=== PATIENT | female | born 1985 | race Hispanic/Latino ===

== ENCOUNTER 2017-10-09 10:43 | Emergency (ER) | payer MEDICAID, OTHER ==
[2017-10-09] MEDS ORDERED: IBUPROFEN 600 MG TABLET ONE (11:43)
== END 2017-10-09 12:11 | disposition home or self-care (01) ==
LOC: EDH 10:43
DX: S13.4XXA Sprain of ligaments of cervical spine, initial encounter (principal); M54.5 Low back pain; V49.49XA Driver injured in collision with other motor vehicles in traffic accident, initial encounter; Y93.89 Activity, other specified; Y92.89 Other specified places as the place of occurrence of the external cause; Y99.8 Other external cause status
CPT/HCPCS: 71045; 72040; 72100; 81025

== ENCOUNTER 2017-10-26 09:39 | Emergency (ER) | payer MEDICAID, OTHER ==
[2017-10-26 10:14] LABS: APPEARANCE,URINE Clear (CLEAR); BILIRUBIN,URINE Negative (NEGATIVE); COLOR,URINE Yellow (YELLOW); GLUCOSE, URINE (UA) Negative (NEGATIVE); KETONES,URINE Negative (NEGATIVE); LEUKOCYTE ESTERASE ,URINE Negative (NEGATIVE); NITRATE,URINE Negative (NEGATIVE); OCCULT BLOOD,URINE Negative (NEGATIVE); PH,URINE 5.5 (5.0-8.0); PROTEIN,URINE Negative (NEGATIVE)
[2017-10-26 10:24] LABS: HCG,QUAL RESULT NEGATIVE (NEGATIVE)
[2017-10-26] MEDS ORDERED: KETOROLAC TROMETHAMINE 30MG/ML ONE (10:42)
== END 2017-10-26 11:52 | disposition home or self-care (01) ==
LOC: EDH 09:39
DX: N83.292 Other ovarian cyst, left side (principal); N83.291 Other ovarian cyst, right side; Z98.890 Other specified postprocedural states
CPT/HCPCS: 76856; 81003; 81025; 96372; 99285; J1885

== ENCOUNTER 2017-10-27 12:31 | Emergency (ER) | payer MEDICAID, OTHER ==
[2017-10-27] MEDS ORDERED: ACETAMINOPHEN-CODEINE 300/30MG TAB ONE (13:23)
[2017-10-27] MEDS ORDERED: NAPROXEN 500 MG TABLET ONE (13:23)
[2017-10-27] MEDS ORDERED: MORPHINE SULFATE 8 MG/ML VIAL ONE (13:26)
[2017-10-27] MEDS ORDERED: ONDANSETRON HCL 4 MG/2 ML VIAL ONE (13:28)
[2017-10-27 13:31] LABS: EOSINOPHILS % (AUTO) 0.3 % (0.0-8.0); HEMATOCRIT 35.1 % (36-48); LYMPHOCYTES % (AUTO) 18.8 % (21.0-51.0); MEAN CORPUSCULAR HEMOGLOBIN 27.1 pg (27.0-33.0); MEAN CORPUSCULAR HGB CONC 33.7 g/dL (32.0-36.0); MEAN CORPUSCULAR VOLUME 80.4 fL (79-99); MONOCYTES % (AUTO) 9.5 % (3.0-13.0); NEUTROPHILS % (AUTO) 71.4 % (40.0-77.0); PLATELET COUNT (AUTO) 288 K/uL (130-400); RED BLOOD CELL COUNT(AUTO) 4.37 MIL/uL (4.00-5.50); RED CELL DISTRIBUTION WIDTH 14.4 % (11.0-15.5); WHITE BLOOD COUNT (AUTO) 7.8 K/uL (4.8-10.8)
[2017-10-27 13:40] LABS: CREATININE 0.6 mg/dL (0.5-1.5); POTASSIUM 4.3 mmol/L (3.5-5.1)
== END 2017-10-27 16:10 | disposition home or self-care (01) ==
LOC: EDH 12:31
DX: N83.292 Other ovarian cyst, left side (principal); N83.291 Other ovarian cyst, right side
CPT/HCPCS: 36415; 74176; 80048; 81025; 85025; 96374; 96375; 99285; J2270; J2405

== ENCOUNTER 2017-10-29 10:58 | Observation (INO) | payer MEDICAID ==
[2017-10-29] MEDS ORDERED: ONDANSETRON HCL 4 MG/2 ML VIAL ONE (11:27)
[2017-10-29] MEDS ORDERED: SODIUM CHLORIDE 0.9% 1000ML 1,000 ML IV ONE (11:27)
[2017-10-29 11:30] LABS: BASOPHILS % (AUTO) 0.5 % (0.0-5.0); EOSINOPHILS % (AUTO) 0.9 % (0.0-8.0); HEMATOCRIT 38.7 % (36-48); LYMPHOCYTES % (AUTO) 20.4 % (21.0-51.0); MEAN CORPUSCULAR HEMOGLOBIN 26.7 pg (27.0-33.0); MEAN CORPUSCULAR HGB CONC 33.2 g/dL (32.0-36.0); MEAN CORPUSCULAR VOLUME 80.4 fL (79-99); MONOCYTES % (AUTO) 7.2 % (3.0-13.0); PLATELET COUNT (AUTO) 333 K/uL (130-400); RED BLOOD CELL COUNT(AUTO) 4.81 MIL/uL (4.00-5.50); RED CELL DISTRIBUTION WIDTH 14.3 % (11.0-15.5); WHITE BLOOD COUNT (AUTO) 8.4 K/uL (4.8-10.8)
[2017-10-29 11:47] LABS: APPEARANCE,URINE Clear (CLEAR); BILIRUBIN,URINE Negative (NEGATIVE); COLOR,URINE Yellow (YELLOW); GLUCOSE, URINE (UA) Negative (NEGATIVE); KETONES,URINE Negative (NEGATIVE); LEUKOCYTE ESTERASE ,URINE Moderate (NEGATIVE); NITRATE,URINE Negative (NEGATIVE); OCCULT BLOOD,URINE Large (NEGATIVE); PH,URINE >=9.0 (5.0-8.0); PROTEIN,URINE Negative (NEGATIVE); UROBILINOGEN,URINE 0.2 mg/dL (0.2-1.0)
[2017-10-29 11:47] LABS: CREATININE 0.8 mg/dL (0.5-1.5); POTASSIUM 3.5 mmol/L (3.5-5.1)
[2017-10-29 11:52] LABS: ALBUMIN 4.2 g/dL (3.5-5.0); BILIRUBIN,TOTAL 0.3 mg/dL (0.2-1.0); TOTAL PROTEIN, SERUM 8.3 g/dL (6.0-8.3)
[2017-10-29 12:03] LABS: HCG,QUAL RESULT NEGATIVE (NEGATIVE)
[2017-10-29] MEDS ORDERED: KETOROLAC TROMETHAMINE 30MG/ML ONE (12:12)
[2017-10-29 12:37] LABS: BACTERIA,URINE Rare /HPF (None Seen); SQUAMOUS EPITHELIAL CELL,UR Rare /LPF (0-2); WBC,URINE 0-1 /HPF (0-1)
[2017-10-29] MEDS ORDERED: SODIUM CHLORIDE 0.9% 10 ML VIAL IVP PRN (17:30)
[2017-10-29] MEDS ORDERED: PROMETHAZINE HCL 25 MG/ML 1ML AMPULE IM PRN (17:30)
[2017-10-29] MEDS ORDERED: MEPERIDINE-PF 75 MG/ML SYG IM PRN (17:30)
[2017-10-29] MEDS ORDERED: DEXTROSE 5 %-0.45 % NACL 1,000 ML IV PRN (17:30)
[2017-10-30] MEDS ORDERED: CALDOLOR 800MG+NS 250ML 250 ML IV SCH (01:30)
[2017-10-30] MEDS ORDERED: IBUPROFEN 800 MG TAB PO SCH (17:30)
== END 2017-10-29 18:50 | disposition home or self-care (01) ==
LOC: EDH 10:58 → EDHIP 10:59 → UNDOADMOB 15:00 → EDHIP 15:00
PROVIDERS: ADMIT Obstetrics & Gynecology; ATTEND Obstetrics & Gynecology
DX: N83.292 Other ovarian cyst, left side (principal); N83.291 Other ovarian cyst, right side
CPT/HCPCS: 36415; 76856; 80053; 81001; 81025; 85025; 87040 ×2; 87486; 87797; 99285; G0378 ×8; J1885; J2405; J7030

== ENCOUNTER 2018-07-02 13:53 | Emergency (ER) | payer MEDICAID ==
[2018-07-02] MEDS ORDERED: TETRACAINE HCL 0.5% 4 ML OPHTH SOLN ONE (14:23)
[2018-07-02] MEDS ORDERED: NA BORATE/BORIC AC/H2O/NACL 120 ML OPHTH IRRIG SOLN ONE (14:23)
[2018-07-02] MEDS ORDERED: FLUORESCEIN SODIUM 0.6 MG STRIP ONE (14:23)
[2018-07-02] MEDS ORDERED: DEXAMETHASONE SOD PHOSPHATE 10MG/ML 1ML VIAL ONE (14:41)
== END 2018-07-02 15:09 | disposition home or self-care (01) ==
LOC: EDH 13:53
DX: B02.9 Zoster without complications (principal)
CPT/HCPCS: 96372; 99284; J1100

== ENCOUNTER 2018-09-25 17:07 | Emergency (ER) | payer MEDICAID ==
[2018-09-25 18:35] LABS: APPEARANCE,URINE Clear (CLEAR); BILIRUBIN,URINE Negative (NEGATIVE); COLOR,URINE Yellow (YELLOW); GLUCOSE, URINE (UA) Negative (NEGATIVE); KETONES,URINE Negative (NEGATIVE); LEUKOCYTE ESTERASE ,URINE Trace (NEGATIVE); NITRATE,URINE Negative (NEGATIVE); OCCULT BLOOD,URINE Negative (NEGATIVE); PROTEIN,URINE Negative (NEGATIVE)
[2018-09-25 18:37] LABS: HCG,QUAL RESULT POSITIVE (NEGATIVE)
[2018-09-25 18:47] LABS: BACTERIA,URINE Moderate /HPF (None Seen); RBC,URINE None Seen /HPF (0-1); WBC,URINE 0-1 /HPF (0-1)
== END 2018-09-25 19:06 | disposition home or self-care (01) ==
LOC: EDH 17:07
DX: O26.891 Other specified pregnancy related conditions, first trimester (principal); R10.2 Pelvic and perineal pain; R11.0 Nausea; Z98.890 Other specified postprocedural states; Z3A.01 Less than 8 weeks gestation of pregnancy
CPT/HCPCS: 81001; 81025

== ENCOUNTER 2018-11-13 22:12 | Emergency (ER) | payer MEDICAID ==
[2018-11-13 22:56] LABS: APPEARANCE,URINE Clear (CLEAR); BILIRUBIN,URINE Negative (NEGATIVE); COLOR,URINE Yellow (YELLOW); GLUCOSE, URINE (UA) Negative (NEGATIVE); KETONES,URINE Trace mg/dL (NEGATIVE); LEUKOCYTE ESTERASE ,URINE Small (NEGATIVE); NITRATE,URINE Negative (NEGATIVE); OCCULT BLOOD,URINE Negative (NEGATIVE); PH,URINE 5.5 (5.0-8.0); PROTEIN,URINE Negative (NEGATIVE)
[2018-11-13 23:22] LABS: BACTERIA,URINE Moderate /HPF (None Seen); MUCUS,URINE Moderate LPF (None Seen); RBC,URINE None Seen /HPF (0-1); SQUAMOUS EPITHELIAL CELL,UR Many /HPF (0-2)
== END 2018-11-13 23:40 | disposition home or self-care (01) ==
LOC: EDH 22:12
DX: O26.891 Other specified pregnancy related conditions, first trimester (principal); R10.30 Lower abdominal pain, unspecified; Z3A.12 12 weeks gestation of pregnancy
CPT/HCPCS: 76801; 81001

== ENCOUNTER 2019-01-30 22:22 | Observation (INO) | payer MEDICAID ==
[~2019-01-30] VITALS: Ht 152.4 cm; Wt 58.5 kg
[2019-01-30] MEDS ORDERED: MAG HYDROX/AL HYDROX/SIMETH ES 30 ML SUSP UDCUP ONE (23:21)
[2019-01-30] MEDS ORDERED: LACTATED RINGERS 1000ML 1,000 ML IV ONE (23:22)
[2019-01-30] MEDS ORDERED: FAMOTIDINE/PF 20 MG/2 ML VIAL IV ONE (23:22)
[2019-01-30 23:45] LABS: BASOPHILS % (AUTO) 0.4 % (0.0-5.0); EOSINOPHILS % (AUTO) 0.5 % (0.0-8.0); HEMATOCRIT 31.6 % (36-48); LYMPHOCYTES % (AUTO) 13.2 % (21.0-51.0); MEAN CORPUSCULAR HEMOGLOBIN 28.2 pg (27.0-33.0); MEAN CORPUSCULAR HGB CONC 33.5 g/dL (32.0-36.0); MEAN CORPUSCULAR VOLUME 84.2 fL (79-99); MONOCYTES % (AUTO) 5.1 % (3.0-13.0); NEUTROPHILS % (AUTO) 80.8 % (40.0-77.0); PLATELET COUNT (AUTO) 269 K/uL (130-400); RED BLOOD CELL COUNT(AUTO) 3.76 MIL/uL (4.00-5.50); RED CELL DISTRIBUTION WIDTH 14.5 % (11.0-15.5); WHITE BLOOD COUNT (AUTO) 9.7 K/uL (4.8-10.8)
[2019-01-31 00:13] LABS: CREATININE 0.5 mg/dL (0.5-1.5); POTASSIUM 3.3 mmol/L (3.5-5.1)
[2019-01-31 00:19] LABS: ALBUMIN 2.8 g/dL (3.5-5.0); BILIRUBIN,TOTAL 0.2 mg/dL (0.2-1.0); TOTAL PROTEIN, SERUM 6.8 g/dL (6.0-8.3)
[2019-01-31] MEDS ORDERED: POTASSIUM CHLORIDE 10% ELIXIR 20 MEQ/15 ML UDCUP ONE (00:35)
[2019-01-31 05:19] VITALS: BP 100/68
[2019-01-31] MEDS ORDERED: PREN-94 PO (05:57)
[2019-01-31] MEDS ORDERED: PROMETHAZINE HCL 25 MG/ML 1ML AMPULE IM PRN (06:30)
[2019-01-31] MEDS ORDERED: MEPERIDINE-PF 50 MG/ML SYG IVP PRN (06:30)
[2019-01-31] MEDS: DEXTROSE 5%-LACTATED RINGERS 1,000 ML IV SCH ×2 (06:48→14:30)
[2019-01-31 07:31] VITALS: BP 95/58
[2019-01-31 11:34] VITALS: BP 93/56
--- NOTE | 2019-01-31 12:47 | NUR ---
DCP CM met with pt discussed dc plans. Pt is independent lives at home with children, family members lives close by. Denies any equipments/services. Pt feels safe to go back home, sister able to assist with transporatation and needs as necessary. DC plan to home once stable. CM to cont to follow up. Addendum: 01/31/19 at 1248 by PORSHA DAWN LVN CM Amended: Links added.
--- NOTE | 2019-01-31 14:45 | NUR ---
DISCHARGE PT WAS ABLE TO EAT HER SANDWICH WITH NO DIFFICULTY NOR PAIN SO IS READY FOR DISCHARGE; PT STABLE, NO PAIN, NO COMPLAINTS; PT LEFT UNIT, VIA WHEELCHAIR, STILL , ACCOMPANIED BY MAGDA LAZAR CARRYING ALL PERSONAL BELONGINGS, FOLLOW-UP APPT, AND INSTRUCTIONS; PT LEFT FACILITY IN PERSONAL VEHICLE
== END 2019-01-31 14:45 | disposition home or self-care (01) ==
LOC: EDH 22:22 → EDHIP 22:23 → UNDOADMOB 01-31 03:51 → EDHIP 01-31 03:51 → WSH 01-31 05:18
PROVIDERS: ADMIT Obstetrics & Gynecology; ATTEND Specialist
DX: O99.612 Diseases of the digestive system complicating pregnancy, second trimester (principal); K80.80 Other cholelithiasis without obstruction; Z3A.23 23 weeks gestation of pregnancy
CPT/HCPCS: 36415; 76705; 80053; 82550; 83690; 84484; 85025; 93005; 99284; G0378 ×16; J3490; J7120

== ENCOUNTER 2019-02-26 00:21 | Observation (INO) | payer MEDICAID ==
[~2019-02-26] VITALS: Ht 152.4 cm; Wt 58.5 kg
[~2019-02-26 00:21] MED LIST: PREN-94 PO
[2019-02-26] MEDS ORDERED: LACTATED RINGERS 1000ML 1,000 ML IV SCH ×2 (00:45→01:45)
[2019-02-26 00:52] LABS: APPEARANCE,URINE Clear (CLEAR); BILIRUBIN,URINE Negative (NEGATIVE); COLOR,URINE Yellow (YELLOW); GLUCOSE, URINE (UA) Negative (NEGATIVE); KETONES,URINE Negative (NEGATIVE); LEUKOCYTE ESTERASE ,URINE Trace (NEGATIVE); NITRATE,URINE Negative (NEGATIVE); OCCULT BLOOD,URINE Negative (NEGATIVE); PH,URINE 7.5 (5.0-8.0); PROTEIN,URINE Negative (NEGATIVE)
[2019-02-26 00:59] LABS: BACTERIA,URINE Few /HPF (None Seen); MUCUS,URINE Few LPF (None Seen); RBC,URINE None Seen /HPF (0-1); SQUAMOUS EPITHELIAL CELL,UR Few /HPF (0-2); WBC,URINE 0-1 /HPF (0-1)
[2019-02-26] MEDS ORDERED: TERBUTALINE SULFATE VIAL 1MG/ML SQ SCH ×2 (01:45)
[2019-02-26 01:47] VITALS: BP 107/69
[2019-02-26] MEDS ORDERED: TERBUTALINE SULFATE VIAL 1MG/ML SQ ONE (01:55)
[2019-02-26 02:10] LABS: AMPHET/METH SCREEN,URINE NEGATIVE (NEGATIVE); BARBITURATE SCREEN, URINE NEGATIVE (NEGATIVE); BENZODIAZEPINES SCREEN,URINE NEGATIVE (NEGATIVE); CANNABINOID SCREEN,URINE NEGATIVE (NEGATIVE); COCAINE SCREEN,URINE NEGATIVE (NEGATIVE); OPIATE SCREEN,URINE NEGATIVE (NEGATIVE); PHENCYCLIDINE SCREEN,URINE NEGATIVE (NEGATIVE)
== END 2019-02-26 04:30 | disposition home or self-care (01) ==
LOC: EDH 00:21 → LDH 00:36
PROVIDERS: ADMIT Specialist; ATTEND Specialist
DX: O26.892 Other specified pregnancy related conditions, second trimester (principal); R10.11 Right upper quadrant pain; R10.30 Lower abdominal pain, unspecified; Z3A.27 27 weeks gestation of pregnancy; Z79.899 Other long term (current) drug therapy
CPT/HCPCS: 80305; 81001; 99284; G0378 ×4; J3105; 96360; 96361

== ENCOUNTER 2019-04-14 04:03 | Observation (INO) | payer MEDICAID ==
[~2019-04-14] VITALS: Ht 152.4 cm; Wt 60.3 kg
[2019-04-14 04:32] LABS: APPEARANCE,URINE Clear (CLEAR); BILIRUBIN,URINE Negative (NEGATIVE); COLOR,URINE Yellow (YELLOW); GLUCOSE, URINE (UA) Negative (NEGATIVE); KETONES,URINE Negative (NEGATIVE); LEUKOCYTE ESTERASE ,URINE Negative (NEGATIVE); NITRATE,URINE Negative (NEGATIVE); OCCULT BLOOD,URINE Negative (NEGATIVE); PH,URINE 6.5 (5.0-8.0); PROTEIN,URINE Negative (NEGATIVE)
[2019-04-14] MEDS ORDERED: MAGNESIUM SULFATE 1,000 ML IV PRN (04:52)
[2019-04-14] MEDS ORDERED: MAGNESIUM 4GM PREMIX 100ML 100 ML IV SCH (05:00)
[2019-04-14] MEDS ORDERED: PHARMACY COMMUNICATION MISC SCH (05:00)
[2019-04-14] MEDS ORDERED: CALCIUM GLUCONATE 1 GM/10 ML VIAL IV PRN (05:00)
[2019-04-14] MEDS ORDERED: PROMETHAZINE HCL 25 MG/ML 1ML AMPULE IM PRN (05:00)
[2019-04-14] MEDS ORDERED: MAGNESIUM 4GM PREMIX 100ML 100 ML IV ONE (05:04)
[2019-04-14] MEDS ORDERED: MAGNESIUM SULFATE 1,000 ML IV ONE (05:30)
[2019-04-14] MEDS: AMPICILLIN 2GM+NS 100ML 100 ML IV SCH ×4 (05:54→23:35)
[2019-04-14] MEDS: CELESTONE SOLUSPAN 6 MG/ML 5ML VIAL IM SCH (06:01)
[2019-04-14] MEDS: LACTATED RINGERS 1000ML 1,000 ML IV SCH ×2 (06:30→23:33)
[2019-04-14 06:52] LABS: HEMATOCRIT 32.4 % (36-48); MEAN CORPUSCULAR HEMOGLOBIN 26.9 pg (27.0-33.0); MEAN CORPUSCULAR HGB CONC 33.4 g/dL (32.0-36.0); MEAN CORPUSCULAR VOLUME 80.8 fL (79-99); PLATELET COUNT (AUTO) 287 K/uL (130-400); RED BLOOD CELL COUNT(AUTO) 4.01 MIL/uL (4.00-5.50); RED CELL DISTRIBUTION WIDTH 14.1 % (11.0-15.5); WHITE BLOOD COUNT (AUTO) 7.2 K/uL (4.8-10.8)
[2019-04-14 10:22] LABS: AMPHET/METH SCREEN,URINE NEGATIVE (NEGATIVE); BARBITURATE SCREEN, URINE NEGATIVE (NEGATIVE); BENZODIAZEPINES SCREEN,URINE NEGATIVE (NEGATIVE); CANNABINOID SCREEN,URINE NEGATIVE (NEGATIVE); COCAINE SCREEN,URINE NEGATIVE (NEGATIVE); OPIATE SCREEN,URINE NEGATIVE (NEGATIVE); PHENCYCLIDINE SCREEN,URINE NEGATIVE (NEGATIVE)
[2019-04-15 03:40] VITALS: BP 99/54
[2019-04-15] MEDS: AMPICILLIN 2GM+NS 100ML 100 ML IV SCH (05:40)
[2019-04-15] MEDS: CELESTONE SOLUSPAN 6 MG/ML 5ML VIAL IM SCH (05:41)
[2019-04-15 06:10] LABS: HEPATITIS Bs ANTIGEN SCREEN P Negative (Negative)
== END 2019-04-15 10:15 | disposition home or self-care (01) ==
LOC: EDH 04:03 → LDH 04:04
PROVIDERS: ADMIT Specialist; ATTEND Specialist
DX: O60.03 Preterm labor without delivery, third trimester (principal); Z3A.34 34 weeks gestation of pregnancy; Z79.899 Other long term (current) drug therapy
CPT/HCPCS: 36415; 80305; 81003; 83735; 85027; 86592; 86850; 86900; 86901; 87340; 96365; 96366 ×3; 96368; 96372 ×2; 99284; G0378 ×30; J0290 ×5; J0702; J3475 ×3; J7120

== ENCOUNTER 2019-10-10 07:19 | Day surgery (SDC) | payer MEDICAID ==
[2019-10-07 10:19] VITALS: BP 110/59
[2019-10-07 10:31] LABS: BASOPHILS % (AUTO) 0.6 % (0.0-5.0); EOSINOPHILS % (AUTO) 1.8 % (0.0-8.0); HEMATOCRIT 38.7 % (36-48); LYMPHOCYTES % (AUTO) 28.3 % (21.0-51.0); MEAN CORPUSCULAR VOLUME 83.9 fL (79-99); MONOCYTES % (AUTO) 6.5 % (3.0-13.0); NEUTROPHILS % (AUTO) 61.4 % (40.0-77.0); PLATELET COUNT (AUTO) 335 K/uL (130-400); RED BLOOD CELL COUNT(AUTO) 4.61 MIL/uL (4.00-5.50); RED CELL DISTRIBUTION WIDTH 14.2 % (11.0-15.5); WHITE BLOOD COUNT (AUTO) 6.6 K/uL (4.8-10.8)
[2019-10-07 10:47] LABS: ALBUMIN 3.7 g/dL (3.5-5.0); BILIRUBIN,TOTAL 0.4 mg/dL (0.2-1.0); CREATININE 0.6 mg/dL (0.5-1.5); POTASSIUM 4.6 mmol/L (3.5-5.1)
[2019-10-10] VITALS (16 sets, daily range): BP systolic 104–113; BP diastolic 47–69
[~2019-10-10] VITALS: Ht 152.4 cm; Wt 56.2 kg
[~2019-10-10 07:19] MED LIST changes: +PHARMACY COMMUNICATION MISC SCH; -PREN-94 PO
[2019-10-10] MEDS ORDERED: SODIUM CHLORIDE 0.9% 1000ML 1,000 ML IV ONE (07:52)
[2019-10-10] MEDS: CEFAZOLIN SODIUM 1 GM VIAL ONE ×2 (08:20→08:50)
[2019-10-10] MEDS ORDERED: BUPIVACAINE/PF 0.5% 30ML VIAL ONE (08:31)
[2019-10-10] MEDS ORDERED: MIDAZOLAM HCL 1 MG/ML 2ML VIAL ONE (08:34)
[2019-10-10] MEDS ORDERED: NEOSTIGMINE 5MG/5ML SYR IV ONE (08:42)
[2019-10-10] MEDS ORDERED: GLYCOPYRROLATE 1 MG/5 ML SYRINGE ONE (08:42)
[2019-10-10] MEDS ORDERED: SUCCINYLCHOLINE 200MG/10ML SYR ONE (08:42)
[2019-10-10] MEDS ORDERED: LIDOCAINE PF 2% 5ML ABBOJECT ONE ×2 (08:42)
[2019-10-10] MEDS ORDERED: DEXAMETHASONE SOD PHOSPHATE 10MG/ML 1ML VIAL ONE (08:42)
[2019-10-10] MEDS ORDERED: ONDANSETRON HCL 4 MG/2 ML VIAL ONE ×2 (08:42→10:59)
[2019-10-10] MEDS ORDERED: FENTANYL CITRATE PF 50 MCG/1 ML 2ML VIAL ONE (08:42)
[2019-10-10] MEDS ORDERED: PROPOFOL 10 MG/ML 20ML VIAL IV ONE (08:42)
[2019-10-10] MEDS ORDERED: ROCURONIUM 10MG/1ML SYR 10 MG/ML ML ONE (08:42)
[2019-10-10] MEDS ORDERED: MEPERIDINE-PF 25 MG/ML SYG ONE ×2 (09:18→10:12)
[2019-10-10] MEDS ORDERED: METOPROLOL TARTRATE 1 MG/ML 5ML VIAL IV ONE (09:41)
[2019-10-10] MEDS ORDERED: KETOROLAC TROMETHAMINE 15MG/ML ONE (10:34)
== END 2019-10-10 12:05 | disposition home or self-care (01) ==
LOC: DAH 07:19
PROVIDERS: ATTEND Student in an Organized Health Care Education/Training Program
DX: K80.10 Calculus of gallbladder with chronic cholecystitis without obstruction (principal); K21.9 Gastro-esophageal reflux disease without esophagitis; Z98.890 Other specified postprocedural states; Z82.49 Family history of ischemic heart disease and other diseases of the circulatory system
CPT/HCPCS: 36415; 47562; 80053; 84703; 85025; 85730; 88305; A4649 ×4; A4930 ×2; A6206; C1769 ×2; G0168; J0330; J0690; J1100; J1885; J2001 ×2; J2175 ×2; J2250; J2405 ×2; J2704; J2710; J3010; J3490 ×3; J7030 ×2

== ENCOUNTER 2019-10-13 11:34 | Emergency (ER) | payer MEDICAID ==
[2019-10-13] MEDS ORDERED: DiphenhydrAMINE HCL 50 MG/ML VIAL ONE (11:44)
[2019-10-13] MEDS ORDERED: METHYLPREDNISOLONE SOD SUCC 125MG/2ML VIAL ONE (11:45)
[2019-10-13] MEDS ORDERED: FAMOTIDINE/PF 20 MG/2 ML VIAL IV ONE (11:45)
[2019-10-13 12:18] LABS: BASOPHILS % (AUTO) 0.1 % (0.0-5.0); EOSINOPHILS % (AUTO) 3.7 % (0.0-8.0); LYMPHOCYTES % (AUTO) 31.9 % (21.0-51.0); MEAN CORPUSCULAR HEMOGLOBIN 25.9 pg (27.0-33.0); MEAN CORPUSCULAR VOLUME 83.5 fL (79-99); MONOCYTES % (AUTO) 4.7 % (3.0-13.0); NEUTROPHILS % (AUTO) 58.9 % (40.0-77.0); PLATELET COUNT (AUTO) 400 K/uL (130-400); RED BLOOD CELL COUNT(AUTO) 4.67 MIL/uL (4.00-5.50); RED CELL DISTRIBUTION WIDTH 13.9 % (11.0-15.5); WHITE BLOOD COUNT (AUTO) 7.2 K/uL (4.8-10.8)
[2019-10-13 12:32] LABS: CREATININE 0.6 mg/dL (0.5-1.5); POTASSIUM 3.3 mmol/L (3.5-5.1)
[2019-10-13 12:36] LABS: ALBUMIN 3.3 g/dL (3.5-5.0); BILIRUBIN,TOTAL 0.3 mg/dL (0.2-1.0); TOTAL PROTEIN, SERUM 7.8 g/dL (6.0-8.3)
== END 2019-10-13 13:58 | disposition home or self-care (01) ==
LOC: EDH 11:34
DX: T78.40XA Allergy, unspecified, initial encounter (principal); Z98.890 Other specified postprocedural states; X58.XXXA Exposure to other specified factors, initial encounter
CPT/HCPCS: 36415; 80053; 85025; 96374; 96375; 99284; J1200; J2930; J3490

== ENCOUNTER 2021-03-02 14:58 | Observation (INO) | payer MEDICAID ==
[~2021-03-02] VITALS: Ht 152.4 cm; Wt 57.2 kg
[2021-03-02 15:33] VITALS: BP 108/58
[2021-03-02] MEDS ORDERED: 0.9%NACL 1000ML 1,000 ML IV SCH (16:45)
[2021-03-02 17:36] LABS: HEMATOCRIT 39.3 % (36-48); MEAN CORPUSCULAR HEMOGLOBIN 25.8 pg (27.0-33.0); MEAN CORPUSCULAR HGB CONC 31.3 g/dL (32.0-36.0); MEAN CORPUSCULAR VOLUME 82.4 fL (79-99); RED BLOOD CELL COUNT(AUTO) 4.77 MIL/uL (4.00-5.50); RED CELL DISTRIBUTION WIDTH 14.7 % (11.0-15.5)
[2021-03-02] MEDS ORDERED: METOCLOPRAMIDE 10 MG/2 ML VIAL IVP SCH (18:35)
[2021-03-02] MEDS ORDERED: LIDOCAINE PF 100MG/5ML (2%) SYRINGE 5ML ONE (19:04)
[2021-03-02] MEDS ORDERED: MIDAZOLAM HCL 1 MG/ML 2ML VIAL ONE (19:04)
[2021-03-02] MEDS ORDERED: PROPOFOL 10 MG/ML 20ML VIAL IV ONE (19:05)
[2021-03-02] MEDS ORDERED: ONDANSETRON 4MG INJ ONE (19:23)
[2021-03-02] MEDS ORDERED: FENTANYL CITRATE PF 50 MCG/1 ML 2ML VIAL ONE (19:25)
[2021-03-02] MEDS ORDERED: OXYTOCIN 10 USP UNITS/ML ONE (19:28)
[2021-03-02] MEDS ORDERED: APAP-CODEINE 300/30MG TAB ONE (20:56)
[2021-03-02] MEDS ORDERED: MEPERIDINE-PF 50 MG/ML SYG ONE (21:43)
[2021-03-02] MEDS ORDERED: PROMETHAZINE HCL 25 MG/ML 1ML AMPULE IM SCH (21:45)
[2021-03-02] MEDS ORDERED: MEPERIDINE-PF 50 MG/ML SYG IVP SCH (21:45)
[2021-03-02] MEDS ORDERED: APAP-CODEINE 300/30MG TAB PO ONE (22:00)
== END 2021-03-02 23:40 | disposition home or self-care (01) ==
LOC: WSH 14:58
PROVIDERS: ADMIT Specialist; ATTEND Specialist
DX: O02.1 Missed abortion (principal); Z3A.01 Less than 8 weeks gestation of pregnancy
CPT/HCPCS: 36415; 59820; 85027; 86850; 86900; 86901; 88305; 96372; 96374; G0378 ×6; J2175; J2250; J2405; J2590; J2765; J3010; J3490 ×2; J7120; Z7514; G0379; J2001; J2704